=== PATIENT | female | born 1975 | race Caucasian/White ===

== ENCOUNTER 2019-03-25 13:16 | Emergency (ER) | payer BC, MEDICARE, OTHER ==
[~2019-03-25] VITALS: Ht 154.9 cm; Wt 113.6 kg
[2019-03-25] MEDS ORDERED: ZIPR80CA12 PO (13:44)
[2019-03-25] MEDS ORDERED: FLUO40CA PO (13:44)
[2019-03-25] MEDS ORDERED: BUPR300T92 PO (13:44)
[2019-03-25] MEDS ORDERED: TOPI200T7 PO (13:44)
[2019-03-25] MEDS ORDERED: CLON0.5T2 PO (13:44)
[2019-03-25] MEDS ORDERED: LAMO200T3 PO (13:44)
[2019-03-25 13:46] LABS: BASO # 0.1 10^3/uL (0.0-0.2); BASO % 0.6 % (0.0-1.0); EOS # 0.1 10^3/uL (0.0-0.5); EOS % 1.6 % (0.0-3.0); HEMOGLOBIN 11.7 g/dl (12.0-15.5); LYMPH # 2.8 10^3/uL (1.5-5.0); LYMPH % 32.1 % (24.0-44.0); MEAN CORPUSCULAR HGB CONC 32.5 g/dl (32.0-36.5); MEAN CORPUSCULAR VOLUME 89.3 fl (80.0-96.0); MONO # 0.6 10^3/uL (0.0-0.8); MONO % 6.9 % (0.0-5.0); NEUTROPHILS # 5.1 10^3/uL (1.5-8.5); NEUTROPHILS % 58.3 % (36.0-66.0); PLATELET COUNT, AUTOMATED 319 10^3/uL (150-450); RED BLOOD COUNT 4.03 10^6/uL (4.00-5.40); WHITE BLOOD COUNT 8.8 10^3/uL (4.0-10.0)
[2019-03-25 14:11] LABS: HCG, SERUM QUALITATIVE NEGATIVE (NEGATIVE)
[2019-03-25 14:25] LABS: ACETAMINOPHEN LEVEL < 2.0 UG/ML (10.0-30.0); ALBUMIN 3.7 GM/DL (3.2-5.2); ALT/SGPT 19 U/L (12-78); BILIRUBIN,DIRECT 0.1 MG/DL (0.0-0.2); BILIRUBIN,TOTAL 0.5 MG/DL (0.2-1.0); BLOOD UREA NITROGEN 9 MG/DL (7-18); CALCIUM LEVEL 8.9 MG/DL (8.5-10.1); CARBON DIOXIDE LEVEL 21 MEQ/L (21-32); CHLORIDE LEVEL 110 MEQ/L (98-107); CPK CREATINE PHOSPHOKINASE 96 U/L (26-192); CREATININE FOR GFR 1.23 MG/DL (0.55-1.30); ETHYL ALCOHOL (ETHANOL) < 0.003 % (0.000-0.010); GLOMERULAR FILTRATION RATE 50.7 (>58); GLUCOSE, FASTING 79 MG/DL (70-100); POTASSIUM SERUM 3.3 MEQ/L (3.5-5.1); SALICYLATE LEVEL < 1.7 MG/DL (5.0-30.0); SODIUM LEVEL 139 MEQ/L (136-145); TOTAL PROTEIN 6.8 GM/DL (6.4-8.2)
[2019-03-25 14:36] LABS: AMPHETAMINES LEVEL URINE NEGATIVE (NEGATIVE); BARBITURATES URINE NEGATIVE (NEGATIVE); BENZODIAZEPINES URINE NEGATIVE (NEGATIVE); CANNABINOIDS URINE NEGATIVE (NEGATIVE); COCAINE METABOLITE URINE NEGATIVE (NEGATIVE); METHADONE URINE NEGATIVE (NEGATIVE); OPIATES URINE NEGATIVE (NEGATIVE); PHENCYCLIDINE URINE NEGATIVE (NEGATIVE)
[2019-03-25] MEDS ORDERED: POTASSIUM CHLORIDE 10 MEQ SR TABLET PO ONE (15:00)
--- NOTE | 2019-03-25 15:03 | REP ---
CT BRAIN WITHOUT CONTRAST: 03/25/2019. Clinical history: Altered mental status. Findings: No prior study. Soft-tissue and bone windows reviewed for each slice level. Lateral ventricles midline, symmetric and without dilatation or displacement. Third and fourth ventricles unremarkable. Cortical stripe shows some very early prominence of sulci and given her stated age. There is no intra or extra-axial hemorrhage, mass, mass effect or edema. Basal ganglia and white matter tracts are unremarkable. No chronic or acute infarcts.. Brainstem and cerebellum grossly intact. Basal cisterns intact. Visualized mastoids and sinuses were clear. Skull base and calvarium unremarkable. That portion of the orbits included were unremarkable. Impression: 1. Negative CT for any acute finding. There is no infarct, edema, hemorrhage or mass. Sinuses and mastoids visible, the skull base and calvarium all intact. 2. Mild prominence of sulci which may reflect very early atrophy. Otherwise negative exam. Electronically Signed by Pankaj Corona MD 03/25/2019 02:53 P
--- NOTE | 2019-03-25 15:47 | ECGEPIP ---
[facility] - ED Test Date: 2019-03-25 Pat Name: DARY NICHOLS Department: Room: - Gender: Female [employer]: kisha : 1975 Requested By: Georgette Mendez Order Number: [id number] Reading MD: Georgette Mendez Measurements Intervals [place] Rate: 84 P: 24 ND: 123 QRS: 17 QRSD: 102 T: 46 QT: 377 QTc: 447 Interpretive Statements SINUS RHYTHM MINIMAL VOLTAGE CRITERIA FOR LVH, CONSIDER NORMAL VARIANT PROBABLE INFERIOR MYOCARDIAL INFARCTION, OF INDETERMINATE AGE WITH POSTERIOR EX EXTENSION NSTTW abnormalities No prior Electronically Signed on 03-25-2019 15:46:59 EST by Georgette Mendez
[2019-03-25] MEDS ORDERED: lamoTRIgine 100MG TAB PO ONE (20:15)
[2019-03-25] MEDS ORDERED: ZIPRASIDONE 80 MG CAP (GEODON) PO ONE (20:15)
[2019-03-25 20:42] VITALS: BP 115/64
== END 2019-03-25 20:41 ==
LOC: M ED 13:16
DX: T14.91XA Suicide attempt, initial encounter (principal); Y92.89 Other specified places as the place of occurrence of the external cause; Y93.89 Activity, other specified; F31.9 Bipolar disorder, unspecified; Z79.899 Other long term (current) drug therapy
CPT/HCPCS: 36415; 70450; 80048; 80076; 80307; 82550; 84443; 84703; 85025; 93005; 93041; 94760; 99285; G0480